=== PATIENT | female | born 1995 | race Caucasian/White ===

== ENCOUNTER 2017-09-20 22:27 | Emergency (ER) | payer MEDICAID ==
[~2017-09-20] VITALS: Ht 172.7 cm; Wt 90.7 kg
[~2017-09-20 22:27] MED LIST: CYCLOBENZAPRINE10 MG ORAL; IBUPROFEN600 MG ORAL; IBUPROFEN800 MG ORAL; NORCO 5-325 TA1 EACH ORAL
[2017-09-20 23:00] VITALS: BP 108/64
[2017-09-20] MEDS ORDERED: Morphine Sulfate 4mg/ml Inj IVP ONE (23:15)
[2017-09-20] MEDS ORDERED: DiphenhydrAMINE 50mg/ml Inj IVP ONE (23:15)
[2017-09-20] MEDS ORDERED: LORazepam Inj 2mg/ml 1ml ONE (23:39)
[2017-09-21 00:02] LABS: BASOPHILS % (AUTO) 0.5 % (0.0-2.0); EOSINOPHILS % (AUTO) 0.4 % (0.0-3.0); HEMATOCRIT 39.7 % (37.0-47.0); HEMOGLOBIN 13.7 G/DL (12.0-16.0); LYMPHOCYTES % (AUTO) 27.3 % (20.0-45.0); MEAN CORPUSCULAR VOLUME 90 FL (80-99); NEUTROPHILS % (AUTO) 62.9 % (45.0-75.0); PLATELET COUNT 145 K/UL (150-450); RED CELL DISTRIBUTION WIDTH 12.1 % (11.6-14.8); WHITE BLOOD COUNT 6.6 K/UL (4.8-10.8)
[2017-09-21 00:13] LABS: ANION GAP 8 mmol/L (5-15); APPEARANCE,URINE CLOUDY; BILIRUBIN, URINE NEGATIVE (NEGATIVE); BLOOD UREA NITROGEN 13 mg/dL (7-18); CALCIUM 8.1 MG/DL (8.5-10.1); CARBON DIOXIDE 28 MMOL/L (21-32); CHLORIDE 103 MMOL/L (98-107); CREATININE 0.8 MG/DL (0.55-1.30); GLUCOSE, URINE (UA) NEGATIVE (NEGATIVE); KETONES,URINE NEGATIVE (NEGATIVE); LEUKOCYTE ESTERASE ,URINE 3+ (NEGATIVE); NITRITE,URINE NEGATIVE (NEGATIVE); PH,URINE 5 (4.5-8.0); POTASSIUM 3.5 MMOL/L (3.5-5.1); PROTEIN,URINE 3+ (NEGATIVE); SODIUM 139 MMOL/L (136-145); UROBILINOGEN,URINE NORMAL MG/DL (0.0-1.0)
[2017-09-21 00:17] LABS: ALANINE AMINOTRANSFERASE 12 U/L (12-78); ALKALINE PHOSPHATASE 98 U/L (46-116); ASPARTATE AMINO TRANSFERASE 14 U/L (15-37); BILIRUBIN,TOTAL 0.3 MG/DL (0.2-1.0)
[2017-09-21 00:35] LABS: COLOR,URINE YELLOW
[2017-09-21 01:00] VITALS: BP 110/64
[2017-09-21] MEDS ORDERED: Morphine Sulfate 4mg/ml Inj IVP ONE (01:00)
[2017-09-21] MEDS ORDERED: DiphenhydrAMINE 50mg/ml Inj IVP ONE (01:45)
[2017-09-21 02:00] VITALS: BP 112/66
[2017-09-21] MEDS ORDERED: DIPHENHYDRAMINE25 M1 ORAL (02:00)
[2017-09-21 02:10] VITALS: BP 112/66
--- NOTE | 2017-09-21 04:17 | Emergency Room Report ---
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 Started tonight. Pain is 10 out of 10, sharp, nonradiating. Denies fevers or chills. Denies chest pain or shortness of breath. Patient states that normally she requires IV fluids, Zofran, Benadryl, dextrose. States she was at [facility] earlier today but the wait was too long so she came here. No other aggravating relieving factors. Denies any other associated symptoms Allergies: Coded Allergies: AMOXICILLIN (Verified Allergy, Unknown, 09/20/17) FENTANYL (Verified Allergy, Unknown, 09/20/17) KETOROLAC (Verified Allergy, Unknown, 09/20/17) METOCLOPRAMIDE (Verified Allergy, Unknown, 09/20/17) PENICILLINS (Verified Adverse Reaction, Unknown, 01/22/15) Patient History Past Medical History: asthma, other - porphyria Past Surgical History: none Pertinent Family History: none Social History: Denies: smoking, alcohol use, drug use Last Menstrual Period: 2 weeks ago Now: No Immunizations: UTD Reviewed Nursing Documentation: PMH: Agreed, PSxH: Agreed Nursing Documentation-PMH Hx Cardiac Problems: Yes - Heart palpitations Hx Asthma: Yes Review of Systems All Other Systems: negative except mentioned in HPI Physical Exam Vital Signs Date Time Temp Pulse Resp B/P (MAP) Pulse Ox O2 Delivery O2 Flow Rate FiO2 09/20/17 22:46 99.0 132 22 103/64 96 Room Air Sp02 EP Interpretation: reviewed, normal General Appearance: alert, GCS 15, non-toxic, mild distress, obese Head: normocephalic, atraumatic Eyes: bilateral eye normal inspection, bilateral eye PERRL ENT: hearing grossly normal, normal pharynx, no angioedema, normal voice Neck: full range of motion, supple/symm/no masses Respiratory: chest non-tender, lungs clear, normal breath sounds, speaking full sentences Cardiovascular #1: regular rate, rhythm, no edema Cardiovascular #2: 2+ carotid (R), 2+ carotid (L), 2+ radial (R), 2+ radial (L) , 2+ dorsalis pedis (R), 2+ dorsalis pedis (L) Gastrointestinal: normal bowel sounds, soft, non-distended, no guarding, no rebound, tenderness Rectal: deferred Genitourinary: normal inspection, no CVA tenderness Musculoskeletal: back normal, gait/station normal, normal range of motion, non- tender Neurologic: alert, oriented x3, responsive, motor strength/tone normal, sensory intact, speech normal Psychiatric: judgement/insight normal, memory normal, mood/affect normal, no suicidal/homicidal ideation Reflexes: 3+ bicep (R), 3+ bicep (L), 3+ tricep (R), 3+ tricep (L), 3+ knee (R) , 3+ knee (L) Skin: normal color, no rash, warm/dry, well hydrated Lymphatic: no adenopathy Medical Decision Making Diagnostic Impression: Primary Impression: Abdominal pain Qualified Codes: R10.84 - Generalized abdominal pain Additional Impression: Porphyria Qualified Codes: E80.20 - Unspecified porphyria ER Course Hospital Course 22-year-old female presents ED complaining of abdominal pain with nausea vomiting. History of porphyria differential diagnosis: gastritis, SBO, cholecystits Clinical course Patient placed on stretcher. On manager cardiac. After initial history and physical I ordered labs, IV fluids, Zofran, benedryl, dextrose and morphine Labs - no leukocytosis, no electrolyte abnormalities, LFTs normal, UA unremarkable Upon reassessment, patient states pain has improved. patient is safe for discharge I feel this is a highly complex case requiring extensive working including EKG/ Rhythm strip, Xray/CT/US, Blood/urine lab work, repeat exams while in ED, and administration of strong opiates/narcotics for pain control, admission to hospital or close patient follow up. Diagnosis - abdominal pain, porphyria Stable and discharged to home with prescriptions for Benedryl. Followup with PMD. Return to ED if symptoms recur or worsen Labs Test 09/20/17 23:30 White Blood Count 6.6 K/UL (4.8-10.8) Red Blood Count 4.40 M/UL (4.20-5.40) Hemoglobin 13.7 G/DL (12.0-16.0) Hematocrit 39.7 % (37.0-47.0) Mean Corpuscular Volume 90 FL (80-99) Mean Corpuscular Hemoglobin 31.1 PG (27.0-31.0) Mean Corpuscular Hemoglobin Concent 34.4 G/DL (32.0-36.0) Red Cell Distribution Width 12.1 % (11.6-14.8) Platelet Count 145 K/UL (150-450) Mean Platelet Volume 8.1 FL (6.5-10.1) Neutrophils (%) (Auto) 62.9 % (45.0-75.0) Lymphocytes (%) (Auto) 27.3 % (20.0-45.0) Monocytes (%) (Auto) 9.0 % (1.0-10.0) Eosinophils (%) (Auto) 0.4 % (0.0-3.0) Basophils (%) (Auto) 0.5 % (0.0-2.0) Urine Color Yellow Urine Appearance Cloudy Urine pH 5 (4.5-8.0) Urine Specific [place] 1.020 (1.005-1.035) Urine Protein 3+ (NEGATIVE) Urine Glucose (UA) Negative (NEGATIVE) Urine Ketones Negative (NEGATIVE) Urine Occult Blood 5+ (NEGATIVE) Urine Nitrite Negative (NEGATIVE) Urine Bilirubin Negative (NEGATIVE) Urine Urobilinogen Normal MG/DL (0.0-1.0) Urine Leukocyte Esterase 3+ (NEGATIVE) Urine RBC 40-60 /HPF (0 - 2) Urine WBC Tntc /HPF (0 - 2) Urine Squamous Epithelial Cells Few /LPF (NONE/OCC) Urine Bacteria Many /HPF (NONE) Urine HCG, Qualitative Negative Sodium Level 139 MMOL/L (136-145) Potassium Level 3.5 MMOL/L (3.5-5.1) Chloride Level 103 MMOL/L (98-107) Carbon Dioxide Level 28 MMOL/L (21-32) Anion Gap 8 mmol/L (5-15) Blood Urea Nitrogen 13 mg/dL (7-18) Creatinine 0.8 MG/DL (0.55-1.30) Estimat Glomerular Filtration Rate > 60 mL/min (>60) Glucose Level 105 MG/DL (74-106) Calcium Level 8.1 MG/DL (8.5-10.1) Total Bilirubin 0.3 MG/DL (0.2-1.0) Aspartate Amino Transf (AST/SGOT) 14 U/L (15-37) Alanine Aminotransferase (ALT/SGPT) 12 U/L (12-78) Alkaline Phosphatase 98 U/L (46-116) Total Protein 7.9 G/DL (6.4-8.2) Albumin 4.0 G/DL (3.4-5.0) Globulin 3.9 g/dL Albumin/Globulin Ratio 1.0 (1.0-2.7) Lipase 79 U/L (73-393) Last Vital Signs Date Time Temp Pulse Resp B/P (MAP) Pulse Ox O2 Delivery O2 Flow Rate FiO2 09/21/17 01:55 98.9 09/20/17 22:46 132 22 103/64 96 Room Air Status: improved Disposition: HOME, SELF-CARE Condition: Stable Scripts Diphenhydramine Hcl* (DIPHENHYDRAMINE HCL*) 25 Mg Capsule 50 MG ORAL Q6H Y for Itching for 30 Days, CAP 0 Refills Prov: SAMEER CORNEJO M.D. 09/21/17 Referrals: NOT CHOSEN GISEL/,REFERRING Patient Instructions: SAMEER Patricio M.D. Sep 21, 2017 04:17
== END 2017-09-21 02:10 | disposition home or self-care (01) ==
LOC: EMR 23:12
DX: R10.9 Unspecified abdominal pain (principal); E80.20 Unspecified porphyria; R11.2 Nausea with vomiting, unspecified; J45.909 Unspecified asthma, uncomplicated; Z88.0 Allergy status to penicillin; Z88.8 Allergy status to other drugs, medicaments and biological substances
CPT/HCPCS: 36415; 80053; 81003; 81025; 83690; 85025; 87086; 87181; 96361; 96374; 96375; 99284; J1200; J2270; J2405

== ENCOUNTER 2017-09-29 20:32 | Emergency (ER) | payer SELFPAY ==
[~2017-09-29] VITALS: Ht 172.7 cm; Wt 83.9 kg
[~2017-09-29 20:32] MED LIST changes: +DIPHENHYDRAMINE25 M1 ORAL
[2017-09-29] MEDS ORDERED: NITROFURANTOIN25 MG PO (20:46)
[2017-09-29] MEDS ORDERED: GABAPENTIN300 MG ORAL (20:46)
[2017-09-29] MEDS ORDERED: BENADRYL25 MG ORAL (20:46)
[2017-09-29] MEDS ORDERED: TOPIRAMATE25 MG ORAL (20:46)
[2017-09-29] MEDS ORDERED: Promethazine 50mg/ml Inj IM ONE (21:00)
--- NOTE | 2017-09-29 21:03 | Emergency Room Report ---
History of Present Illness General Chief Complaint: Seizure Source: Patient Present Illness HPI Is a 22-year-old female who has a history of seizure that she take gabapentin 4. She also said that she has dysuria. She presents with chief complaint abdominal pain and headache. This is similar complaint in the past. She was just here last week. She was admitted to [facility] and was discharged 2 days ago. She claimed that she's been vomiting. Unable to keep anything down. No fever chills or pain is 10 out of 10. No diarrhea. Denies any other complaint. Allergies: Coded Allergies: AMOXICILLIN (Verified Allergy, Unknown, 09/20/17) FENTANYL (Verified Allergy, Unknown, 09/20/17) KETOROLAC (Verified Allergy, Unknown, 09/20/17) METOCLOPRAMIDE (Verified Allergy, Unknown, 09/20/17) PENICILLINS (Verified Adverse Reaction, Unknown, 01/22/15) Patient History Past Medical History: see triage record, old chart reviewed Past Surgical History: other Pertinent Family History: none Social History: Denies: smoking Last Menstrual Period: 09/14/17 Now: No Reviewed Nursing Documentation: PMH: Agreed, PSxH: Agreed Nursing Documentation-PMH Past Medical History: No History, Except For Hx Cardiac Problems: Yes - Heart palpitations Hx Asthma: No Review of Systems Eye: Denies: eye pain, blurred vision ENT: Denies: ear pain, nose congestion, throat swelling Respiratory: Denies: cough, shortness of breath Cardiovascular: Denies: chest pain, palpitations Gastrointestinal: Reports: abdominal pain, Denies: diarrhea, nausea, vomiting Musculoskeletal: Denies: back pain, joint pain Skin: Denies: rash Neurological: Denies: headache, numbness Endocrine: Denies: increased thirst, increased urine Hematologic/Lymphatic: Denies: easy bruising All Other Systems: negative except mentioned in HPI Physical Exam Vital Signs Date Time Temp Pulse Resp B/P (MAP) Pulse Ox O2 Delivery O2 Flow Rate FiO2 09/29/17 20:40 99.0 102 20 115/83 98 Room Air vitals unremarkable Sp02 EP Interpretation: reviewed, normal General Appearance: well appearing, no apparent distress, alert Head: normocephalic, atraumatic Eyes: bilateral eye PERRL, bilateral eye EOMI ENT: hearing grossly normal, normal pharynx Neck: full range of motion, supple, no meningismus Respiratory: chest non-tender, lungs clear, normal breath sounds Cardiovascular #1: regular rate, rhythm, no murmur Gastrointestinal: normal bowel sounds, no mass, no organomegaly, no bruit, non- distended, tenderness - Mild, diffuse. No guarding. Musculoskeletal: back normal, gait/station normal, normal range of motion Psychiatric: mood/affect normal Skin: warm/dry Medical Decision Making Diagnostic Impression: Primary Impression: Abdominal pain Qualified Codes: R10.84 - Generalized abdominal pain Additional Impression: Opiate dependence Qualified Codes: F11.20 - Opioid dependence, uncomplicated ER Course Patient present with abdominal pain. Workup so far is been in the past. No evidence of any dehydration. No vomiting here. I told patient would not give any narcotic suicidal opioid dependence. We'll discharge home. She said that she is currently taking antibiotics for MRSA it was positive on a nasal swab. Patient tolerated by mouth here. No evidence of ketones in the urine. She is being treated with Macrobid for 21 days for "MRSA" infection. She grew out ESBL Escherichia coli that is sensitive to Macrobid. I doubt that her medication is for MRSA. Probably secondary to constipation of Escherichia coli. Last Vital Signs Date Time Temp Pulse Resp B/P (MAP) Pulse Ox O2 Delivery O2 Flow Rate FiO2 09/29/17 20:40 99.0 102 20 115/83 98 Room Air Status: improved Disposition: HOME, SELF-CARE Condition: Stable Scripts Ondansetron Odt* (ZOFRAN ODT*) 4 Mg Tab.rapdis 4 MG ORAL Q6H Y for Nausea & Vomiting, #30 TAB 0 Refills Prov: LONG CRAIG M.D. 09/29/17 Additional Instructions: Followup with your DrGretchen within 7 days for recheck. Return if worsening symptoms. LONG CRAIG M.D. Sep 29, 2017 21:03
[2017-09-29 21:15] LABS: APPEARANCE,URINE SLIGHTLY CLOUDY; BILIRUBIN, URINE NEGATIVE (NEGATIVE); GLUCOSE, URINE (UA) NEGATIVE (NEGATIVE); KETONES,URINE NEGATIVE (NEGATIVE); LEUKOCYTE ESTERASE ,URINE 3+ (NEGATIVE); NITRITE,URINE NEGATIVE (NEGATIVE); PH,URINE 6 (4.5-8.0); PROTEIN,URINE 2+ (NEGATIVE); UROBILINOGEN,URINE 1 MG/DL (0.0-1.0)
[2017-09-29 21:18] LABS: COLOR,URINE YELLOW
[2017-09-29 21:23] VITALS: BP 115/83
[2017-09-29] MEDS ORDERED: ZOFRAN ODT4 MG ORAL (21:29)
[2017-09-29 21:33] VITALS: BP 115/83
== END 2017-09-29 21:33 | disposition home or self-care (01) ==
LOC: EMR 20:58
DX: R10.9 Unspecified abdominal pain (principal); R51 Headache; F11.20 Opioid dependence, uncomplicated; Z88.0 Allergy status to penicillin; Z88.8 Allergy status to other drugs, medicaments and biological substances
CPT/HCPCS: 80307; 81003; 81025; 96372; 99283